=== PATIENT | female | born 1990 | race Caucasian/White ===

== ENCOUNTER 2021-08-14 14:46 | Emergency (ER) | payer OTHER ==
--- NOTE | 2021-08-14 15:00 | ED Physician Documentation ---
PD HPI FEMALE - Stated complaint Stated Complaint: SPOTTING - Chief complaint Chief Complaint: Abd Pain - History obtained from History obtained from: Patient - History of Present Illness Timing - onset: Yesterday Timing - duration: Days (She has been having some spotting of darker vaginal discharge since last week associated with nausea and some cramping. Increased spotting and cramps since last night with some red blood at times. Also notes some vaginal discharge.) Timing - details: Abrupt onset, Still present Associated symptoms: Vaginal bleeding, Vaginal discharge (which she believes may be just vaginal medications leaking back out.). 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 denies: Vomiting, Diarrhea : reports: Discharge (mild), Vaginal bleeding (some brighter red today.). denies: Dysuria, Frequency Neurologic: denies: Generalized weakness, Near syncope PD PAST MEDICAL HISTORY - Past Medical History Cardiovascular: None Endocrine/Autoimmune: None SKIP LOAD DRIVER: Other (infertility) - Allergies Allergies/Adverse Reactions: Allergies Allergy/AdvReac Type Severity Reaction Status Date / Time No Known Drug Allergies Allergy Verified 08/14/21 14:51 PD ED PE NORMAL - Vitals Vital signs reviewed: Yes - General General: Alert and oriented X 3, No acute distress (not in pain but does state she is feeling anxious about symptoms. ), Well developed/nourished - Cardiac Cardiac: RRR, No murmur - Respiratory Respiratory: Clear bilaterally - Abdomen Abdomen: Normal bowel sounds, Soft, Non tender, Non distended, No organomegaly - Female Female : Deferred - Rectal Rectal: Deferred (she can self-obtain swabs for vaginal PCR testing. ) - Back Back: No CVA TTP - Derm Derm: Normal color, Warm and dry - Extremities Extremities: No tenderness to palpate, Normal ROM s pain, No edema, No calf tenderness / cord - Neuro Neuro: Alert and oriented X 3, Normal speech Results - Vitals Vitals: Vital Signs - 24 hr 08/14/21 08/14/21 14:47 16:51 Temperature 36.8 C 36.6 C Heart Rate 68 65 Respiratory 18 16 Rate Blood Pressure 130/61 128/64 O2 Saturation 96 100 Oxygen O2 Source Room air - Labs Labs: Laboratory Tests 08/14/21 08/14/21 08/14/21 15:50 15:50 16:09 Urine Color YELLOW Urine Clarity CLEAR Urine pH 6.5 Ur Specific [place] 1.025 Urine Protein NEGATIVE Urine Glucose (UA) NEGATIVE Urine Ketones NEGATIVE Urine Occult Blood SMALL H Urine Nitrite NEGATIVE Urine Bilirubin NEGATIVE Urine Urobilinogen 0.2 (NORMAL) Ur Leukocyte Esterase NEGATIVE Urine RBC 0-5 Urine WBC 0-3 Ur Squamous Epith Cells RARE Squamous Urine Bacteria Rare Ur Microscopic Review INDICATED Urine Culture Comments NOT INDICATED C. glabrata (PCR) NEGATIVE C. krusei (PCR) NEGATIVE Makayla species DNA NEGATIVE Chlam trachomat DNA PCR NEGATIVE N.gonorrhoeae DNA (PCR) NEGATIVE T. 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 SMall subchorionic hemorrhage. SMall right adnexal cyst. No pelvic free fluid. ) PD MEDICAL DECISION MAKING - ED course Complexity details: reviewed results, considered differential (pt states mild vag discharge - could be vag suppos meds. can have her self-obtain vaginal swabs for PCR testing. Otherwise can recheck pelvic U/S to ensure still no signs of heterotopic . ), d/w patient Departure - Departure Disposition: 01 Home, Self Care Clinical Impression: , Subchorionic hemorrhage in first trimester Condition: Stable Instructions: Bleeding Early Preg Follow-Up: Prashanth Amezquita MD [Primary Care Provider] - Comments: Stay well-hydrated. Continue with your vitamin B6 and doxylamine regularly. To that add ondansetron if needed for nausea. Tylenol every 4-6 hours if needed for pains. Early in you can still use anti-inflammatory such as naproxen or ibuprofen (do not use these after 20 weeks gestation). The ultrasound showed a single in the uterus at 7 weeks 4 days size. There was a small cyst on the right ovary. No free fluid in the pelvis. The test borer did call me back to say there is a very small subchorionic hemorrhage and that could represent the cause of bleeding. Typically pregn ancies still go on normally majority of the time. Follow-up with your PASSENGER TIRE BUILDER if persisting beyond the next few days. Vaginitis test is still pending result and will call you if we need to add any treatment for that. Discharge Date/Time: 08/14/21 16:54
[2021-08-14] MEDS ORDERED: ONDANSETRON ODT 4 MG TABLET TL STA (15:31)
[2021-08-14] MEDS ORDERED: ACETAMINOPHEN 325 MG TABLET PO STA (15:31)
[2021-08-14 16:16] LABS: BILIRUBIN,URINE NEGATIVE (NEGATIVE); GLUCOSE, URINE (UA) NEGATIVE (NEGATIVE); KETONES,URINE (UA) NEGATIVE (NEGATIVE); LEUKOCYTE ESTERASE, URINE NEGATIVE (NEGATIVE); NITRITE,URINE NEGATIVE (NEGATIVE); OCCULT BLOOD,URINE SMALL (NEGATIVE); PH,URINE 6.5 PH (5.0-7.5); PROTEIN,URINE NEGATIVE (NEGATIVE); UROBILINOGEN,URINE 0.2 (NORMAL) E.U./dL (NORMAL)
[2021-08-14 16:17] LABS: CLARITY,URINE CLEAR (CLEAR)
[2021-08-14 16:24] LABS: BACTERIA,URINE Rare /HPF (None Seen); RBC,URINE 0-5 /HPF (0-5); SQUAMOUS EPITHELIAL CELL,UR RARE Squamous (<= Few); WBC,URINE 0-3 /HPF (0-5)
--- NOTE | 2021-08-14 16:50 | Ultrasound Report ---
PROCEDURE: OB First Trimester INDICATIONS: vag bleeding/cramps, early IVF OUTSIDE/PRIOR DATING DATA: Last menstrual period (LMP): 07/11/2021, IVF. LMP-based estimated date of delivery (SNOW): 03/29/2022. First dating scan (date and location): 08/14/2021. Estimated date of delivery (SNOW) from first dating scan: 03/29/2022. The below data below was generated using the ultrasound SNOW of 03/29/2022 TECHNIQUE: Real-time scanning was performed of the fetus and maternal pelvic organs, with image documentation. COMPARISON: None FINDINGS: Embryo: There is an intrauterine gestational sac seen, with a pole present, which measures 1.3 cm, which corresponds to an estimated gestational age of 7 weeks 4 days. cardiac activity is s een, with a measured heart rate of 153 bpm. A small amount of perigestational/subchorionic hemorrha ge can be seen inferior to the gestational sac measuring 18 x 10 x 17 mm. Measurement variability in dating: +/- 4 weeks by LMP, +/- 7 days by mean sac diameter (use before 6 weeks gestation if crown-rump length not able to be measured), +/- 5 days by crown-rump length (6-12 weeks gestation). Maternal organs: Ovaries are within normal limits, with a right ovarian corpus luteum seen. IMPRESSION: Single live intrauterine . No significant discrepancy is found between the estimated gestational age based upon these images and the estimated gestational age based upon the given date of the last menstrual period. Focus of subchorionic hemorrhage seen adjacent to the gestational sac measuring 18 x 10 x 17 mm. Close clinical follow-up with serial beta hCG measurements and serial ultrasound would be recommended , as clinically appropriate. Note: Concordant preliminary findings given by the geosciences faculty member upon the completion of the examination to Dr. Worley at 4:40 PM on 08/14/2021. Reviewed by: Jf Wyatt MD on 08/14/2021 3:48 PM [place] Approved by: Jf Wyatt MD on 08/14/2021 3:48 PM [facility] Station ID: [id number]
[2021-08-14 16:53] VITALS: BP 128/64
--- NOTE | 2021-08-14 17:14 | Ultrasound Report ---
PROCEDURE: OB Transvaginal INDICATIONS: early preg 7.5 wks; vag bleeding/cramps OUTSIDE/PRIOR DATING DATA: Last menstrual period (LMP): 07/11/2021, IVF. LMP-based estimated date of d elivery (SNOW): 03/29/2022. First dating scan (date and location): 08/14/2021. Estimated date of deliver y (SNOW) from first dating scan: 03/29/2022. The below data below was generated using the ultrasound ED D of 03/29/2022 TECHNIQUE: Real-time scanning was performed of the fetus and maternal pelvic organs, with image docum entation. COMPARISON: None FINDINGS: Embryo: There is an intrauterine gestational sac seen, with a pole present, which me asures 1.3 cm, which corresponds to an estimated gestational age of 7 weeks 4 days. cardiac act ivity is seen, with a measured heart rate of 153 bpm. A small amount of perigestational/subchorionic hemorrhage can be seen inferior to the gestational sac measuring 18 x 10 x 17 mm. Measurement variab ility in dating: +/- 4 weeks by LMP, +/- 7 days by mean sac diameter (use before 6 weeks gestation if crown-rump length not able to be measured), +/- 5 days by crown-rump length (6-12 weeks gestation). Maternal organs: Ovaries are within normal limits, with a right ovarian corpus luteum seen. IMPRESSION: Single live intrauterine . No significant discrepancy is found between the estimated gestational age based upon these images and the estimated gestational age based upon the given date of the last menstrual period. Focus of subchorionic hemorrhage seen adjacent to the gestational sac measuring 18 x 10 x 17 mm. Close clinical follow-up with serial beta hCG measurements and serial ultrasound would be recommended , as clinically appropriate. Note: Concordant preliminary findings given by the concrete float maker upon the completion of the examination to Dr. Worley at 4:40 PM on 08/14/2021. Reviewed by: Jf Wyatt MD on 08/14/2021 4:12 PM [place] Approved by: Jf Wyatt MD on 08/14/2021 4:12 PM [facility] Station ID: [id number]
[2021-08-14 17:37] LABS: BACTERIAL VAGINOSIS DNA NEGATIVE (NEGATIVE); CANDIDA KRUSEI DNA NEGATIVE (NEGATIVE); TRICHOMONAS VAGINALIS DNA NEGATIVE (NEGATIVE)
[2021-08-14 17:38] LABS: CANDIDA GLABRATA DNA NEGATIVE (NEGATIVE); CANDIDA GROUP DNA NEGATIVE (NEGATIVE)
[2021-08-14 19:29] LABS: CHLAMYDIA TRACHOMATIS DNA NEGATIVE (NEGATIVE); NEISSERIA GONORRHOEAE DNA NEGATIVE (NEGATIVE); TRICHOMONAS VAGINALIS DNA NEGATIVE (NEGATIVE)
== END 2021-08-14 16:54 | disposition home or self-care (01) ==
LOC: ED 14:46
DX: O20.8 Other hemorrhage in early pregnancy (principal); Z3A.01 Less than 8 weeks gestation of pregnancy
CPT/HCPCS: 76801; 76817; 81001; 87481; 87491; 87591; 87661; 87801; 99282; 99284; A9270; Q0162; 81003; 87086